=== PATIENT | female | born 1955 | race American Indian/Alaskan Native ===

== ENCOUNTER 2017-01-27 08:23 | Day surgery (SDC) | payer OTHER ==
[2017-01-12 10:07] VITALS: BMI 47.2
[~2017-01-27 08:23] MED LIST: EPINEPHrine 1:1000 Nasal Sol(30mL) ONE; Lidocaine 2% w Epi 1:100,000 Inj IJ ONE; ceFAZolin IV 2 gm in Dextrose 1 GM/50 ML BAG IVPB ONE
[2017-01-27] MEDS ORDERED: Acetaminophen-Codeine 300/30 mg Tab PO PRN (09:28)
[2017-01-27] MEDS ORDERED: Dextrose 5%/0.45% NS 1,000 ML IV SCH (09:30)
[2017-01-27] MEDS ORDERED: Midazolam 2 MG/2 ML VIAL ONE (10:35)
[2017-01-27] MEDS ORDERED: Propofol 10 mg/ml Inj (20 ML) ONE (10:35)
[2017-01-27] MEDS ORDERED: Lactated Ringer's 1,000 ML IV ONE (11:10)
[2017-01-27] MEDS ORDERED: HYDROmorphone 0.5 mg/0.5 ml ISec IVP PRN (11:48)
[2017-01-27] MEDS ORDERED: Neostigmine Methylsulfate 3mg/3ml Syringe IV ONE (11:51)
--- NOTE | 2017-01-27 12:08 | OP ---
PROCEDURE DATE: 01/27/2017 PREOPERATIVE DIAGNOSES: Deviated septum, enlarged turbinates. POSTOPERATIVE DIAGNOSES: Deviated septum, enlarged turbinates. PROCEDURE: Septoplasty, endoscopic bilateral inferior turbinate reduction. SIGNIFICANT FINDINGS: Deviated septum, enlarged turbinates. DESCRIPTION OF PROCEDURE: The patient was brought in the room, placed in supine position. Anesthesi a was initiated through an ET tube. Afrin-soaked pledgets were inserted in the nasal cavity, remaine d there for at least 5 minutes and removed. The patient was draped in usual manner. The septum was injected with lidocaine with epinephrine on both sides. A Bodega's incision was made on the left, and a mucoperichondrial flap was raised. A vertical incision was made in the cartilage leaving a 1.5 cm anterior and superior strut, and then a mucoperichondrial flap was raised on the other side. Dev iated portion of the cartilage and bone was removed using forceps and chisel. A quilting suture was used to suture the 2 flaps together and close the Freddie's incision. Next, a 0 degree scope was ins erted in the nasal cavity. The inferior turbinates were noted to be enlarged and were reduced using scissors, going from an inferior to superior, anterior to posterior direction on both sides, first on the right, then on the left. Bleeding was controlled using suction cautery on both sides. Splints were placed. The patient was taken off anesthesia and taken to recovery room in stable manner. Brenden Gibbons MD cc: [id number] TT: 01/27/2017 12:07:45 jn
[2017-01-27 13:46] VITALS: O2SAT 97
[2017-01-27 14:47] VITALS: BP 125/62; PULSE 58; RESP 16; TEMP 97
== END 2017-01-27 14:48 | disposition home or self-care (01) ==
LOC: C.SDS 08:23
PROVIDERS: ATTEND Otolaryngology
DX: J34.2 Deviated nasal septum (principal); J34.3 Hypertrophy of nasal turbinates
CPT/HCPCS: 30520; 30802; 82948; 88304; J0690; J1100; J1170; J2250; J2704; J2710; J3010; J7030; J7120